=== PATIENT | female | born 1950 | race Caucasian/White ===

== ENCOUNTER → 2020-03-30 | Outpatient (CLI) | payer MEDICARE, OTHER | END | disposition home or self-care (01) | LOC: CFH 11:36 | PROVIDERS: ATTEND Nurse Practitioner Family | DX: M51.37 Other intervertebral disc degeneration, lumbosacral region (principal); M16.11 Unilateral primary osteoarthritis, right hip; M54.42 Lumbago with sciatica, left side | CPT/HCPCS: 72114 ==

== ENCOUNTER 2020-08-05 08:50 | Outpatient (CLI) | payer MEDICARE, OTHER ==
[2020-08-05] MEDS ORDERED: LIDOCAINE 1%, 10ML ONE (09:14)
== END 2020-08-05 23:59 | disposition home or self-care (01) ==
LOC: RAD 08:50
PROVIDERS: ATTEND Nurse Practitioner Family
DX: E04.1 Nontoxic single thyroid nodule (principal)
CPT/HCPCS: 10005; 88173